=== PATIENT | female | born 1990 | race Caucasian/White ===

== ENCOUNTER 2019-01-31 10:19 | Day surgery (SDC) | payer OTHER ==
[2019-01-24 16:10] VITALS: BMI 23.6
[~2019-01-31 10:19] MED LIST: SODIUM CHLORIDE 0.9% 1,000 ML IV SCH
[2019-01-31] MEDS ORDERED: IV FLUID CONTINUATION 1,000 ML IV ONE (10:28)
[2019-01-31 10:47] VITALS: BP 130/73; RESP 18; TEMP 98.2
--- NOTE | 2019-01-31 15:24 | P.PCN ---
Preoperative Diagnosis: Diagnosis Recurrent presyncope/syncope Twelve-lead ECG shows sinus rhythm normal MD narrow QRS normal ST segments normal QT interval no delta waves no epsilon waves Tilt table test per protocol Baseline blood pressure 119/68 mmHg and Baseline heart rate 70 beats a minute Patient was tilted upright at night was 70 per protocol There was no significant change in heart rate blood pressure At the end of the procedure the patient is laid down supine Impression Normal 12-lead ECG Heart rate and blood pressure response to upright tilting
== END 2019-01-31 13:04 | disposition home or self-care (01) ==
LOC: CATHEP 10:19 → EDSEX 15:00
PROVIDERS: ATTEND Internal Medicine Clinical Cardiac Electrophysiology
DX: R55 Syncope and collapse (principal)
CPT/HCPCS: 93660